=== PATIENT | female | born 1965 | race African-American/Black ===

== ENCOUNTER 2019-09-14 18:30 | Emergency (ER) | payer MEDICAID, OTHER ==
[~2019-09-14] VITALS: Ht 154.9 cm; Wt 110.0 kg
[2019-09-14] MEDS ORDERED: HYDROCODONE/ACETAMINOPHEN 5/325MG TABLET PO ONE (19:30)
[2019-09-14] MEDS ORDERED: KETOROLAC 60MG/2ML VIAL IM ONE (19:30)
[2019-09-14 21:35] VITALS: BP 158/99
== END 2019-09-14 21:47 | disposition home or self-care (01) ==
LOC: ER 18:30
DX: S43.102A Unspecified dislocation of left acromioclavicular joint, initial encounter (principal); X58.XXXA Exposure to other specified factors, initial encounter; Y93.89 Activity, other specified; Y92.89 Other specified places as the place of occurrence of the external cause
CPT/HCPCS: 73030; 73080; 93005; 96372; 99284; J1885